=== PATIENT | male | born 1985 | race Caucasian/White ===

== ENCOUNTER 2020-11-20 08:42 | Outpatient (REF) | payer OTHER, SELFPAY ==
--- NOTE | 2020-11-20 12:20 | XR_ITS ---
EXAMINATION: XR knee standing BI, XR knee RT 2V CLINICAL INFORMATION: Knee pain. COMPARISON: None. TECHNIQUE: A standing AP view of both knees was obtained with lateral and sunrise views of the right knee. FINDINGS: RIGHT KNEE: Surgical changes are present from previous ACL reconstruction with a bone tunnel passing from the lateral femoral condyle to the anteromedial aspect of the proximal tibia. An Endobutton is present in expected position at the femoral tunnel site. No acute abnormality is demonstrated. Joint spaces are maintained. No joint effusion is demonstrated. Patellar alignment is normal. LEFT KNEE: The standing AP view of the left knee is unremarkable. XR/XR knee RT 2V IMPRESSION: Expected changes right knee status post ACL reconstruction. No acute abnormality. Normal AP view of the left knee.
--- NOTE | 2020-11-20 12:20 | XR_ITS ---
EXAMINATION: XR knee standing BI, XR knee RT 2V CLINICAL INFORMATION: Knee pain. COMPARISON: None. TECHNIQUE: A standing AP view of both knees was obtained with lateral and sunrise views of the right knee. FINDINGS: RIGHT KNEE: Surgical changes are present from previous ACL reconstruction with a bone tunnel passing from the lateral femoral condyle to the anteromedial aspect of the proximal tibia. An Endobutton is present in expected position at the femoral tunnel site. No acute abnormality is demonstrated. Joint spaces are maintained. No joint effusion is demonstrated. Patellar alignment is normal. LEFT KNEE: The standing AP view of the left knee is unremarkable. XR/XR knee standing BI IMPRESSION: Expected changes right knee status post ACL reconstruction. No acute abnormality. Normal AP view of the left knee.
== END 2020-11-20 08:43 | disposition home or self-care (01) ==
LOC: HO.HOSX 08:42
PROVIDERS: Visit Provider Orthopaedic Surgery
DX: M23.51 Chronic instability of knee, right knee (principal); Z98.890 Other specified postprocedural states; M25.561 Pain in right knee
CPT/HCPCS: 73560; 73565

== ENCOUNTER 2021-01-02 14:10 | Outpatient (REF) | payer OTHER, MEDICAID, SELFPAY ==
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
== END 2021-01-02 14:11 | disposition home or self-care (01) ==
LOC: HO.MRI 14:10
PROVIDERS: PCP Internal Medicine; Visit Provider Orthopaedic Surgery
DX: M23.51 Chronic instability of knee, right knee (principal); Z98.890 Other specified postprocedural states
CPT/HCPCS: 73721

== ENCOUNTER → 2021-02-02 11:29 | Outpatient (BNVA) | payer OTHER, MEDICAID, SELFPAY | PROVIDERS: Visit Provider Orthopaedic Surgery ==

== ENCOUNTER → 2021-02-11 13:15 | Outpatient (BNVA) | payer OTHER, MEDICAID, SELFPAY | PROVIDERS: Visit Provider Orthopaedic Surgery ==